=== PATIENT | female | born 1990 | race Caucasian/White ===

== ENCOUNTER 2023-03-24 07:26 | Inpatient (IN) | payer OTHER ==
[2023-03-24] MEDS: ELECTROLYTE-148 SOLN 1,000 ML IV SCH ×2 (08:45→11:55)
[2023-03-24 08:48] VITALS: BMI 28.3
[2023-03-24] MEDS: OXYTOCIN 30 UNITS in 0.9% NS 30 UNIT/500 ML INFUS.BAG IVPB SCH (08:50)
[2023-03-24 08:57] LABS: BASO % 0.3 % (0-2.0); EOS % 0.7 % (0-4.5); HEMATOCRIT 33.8 % (32.4-45.2); LYMPH % 14.5 % (8-40); MCH 35.8 pg (25.7-33.7); MCHC 35.5 g/dl (32.0-36.0); MEAN CELL VOLUME 100.9 fl (80-96); MEAN PLT VOLUME 8.5 fl (7.5-11.1); MONO % 8.9 % (3.8-10.2); NEUT % 75.6 % (42.8-82.8); PLATELET COUNT 169 10^3/uL (134-434); RBC 3.35 M/mm3 (3.60-5.2); RDW 12.9 % (11.6-15.6)
[2023-03-24 09:02] LABS: INR 0.98 (0.83-1.09); PROTHROMBIN TIME (PATIENT) 11.4 SEC (9.7-13.0)
[2023-03-24 09:05] LABS: ACTIVATED PTT 26.3 SECONDS (25.2-36.5)
[2023-03-24 09:14] LABS: POTASSIUM 3.7 mmol/L (3.5-5.1)
[2023-03-24 09:15] LABS: CALCIUM 8.1 mg/dL (8.5-10.1)
[2023-03-24 09:16] LABS: BLOOD UREA NITROGEN 9.7 mg/dL (7-18)
[2023-03-24 09:19] LABS: CREATININE 0.6 mg/dL (0.55-1.3)
[2023-03-24 10:27] LABS: HIV INTERPRETATION NEGATIVE (NEGATIVE)
[2023-03-24] MEDS ORDERED: FENTANYL/BUPIVACAINE/NS/PF - PCEA - 50 ML DISP.SYRIN EP ONE ×3 (11:01→20:06)
[2023-03-24] MEDS ORDERED: NALOXONE HCL 0.4 MG/ML VIAL IVPUSH PRN (11:18)
[2023-03-24] MEDS ORDERED: FENTANYL CITRATE/PF 50 MCG/ML VIAL ONE (11:20)
[2023-03-24] MEDS ORDERED: BUPIVACAINE HCL/PF 0.25% (2.5MG/ML) 10 ML VIAL ONE (11:20)
[2023-03-24] MEDS: FENTANYL/BUPIVACAINE/NS/PF - PCEA - 50 ML DISP.SYRIN EP SCH ×2 (11:35→17:30)
[2023-03-24] MEDS ORDERED: OXYTOCIN 20 UNITS in 0.9% NS 20 UNIT/1,000 ML INFUS.BAG IV ONE (20:59)
[2023-03-24] MEDS ORDERED: BENZOCAINE 20% 57 GM BOTTLE TP PRN (22:15)
[2023-03-24] MEDS ORDERED: METHYLERGONOVINE MALEATE 0.2 MG/1 ML AMP IM PRN (22:15)
[2023-03-24] MEDS ORDERED: BISACODYL 10 MG SUPP.RECT RC PRN (22:15)
[2023-03-24] MEDS ORDERED: oxyCODONE HCL 5 MG TABLET PO PRN (22:15)
[2023-03-24] MEDS ORDERED: WITCH HAZEL 50% (TUCKS) 40 PAD/JAR PAD TP PRN (22:15)
[2023-03-24] MEDS ORDERED: OXYTOCIN 20 UNITS in 0.9% NS 20 UNIT/1,000 ML INFUS.BAG IV SCH (22:15)
[2023-03-24] MEDS ORDERED: BENZOCAINE 28 GM HEMORRHOIDAL OINTMENT TP PRN (22:15)
[2023-03-25] MEDS: IBUPROFEN 600 MG TABLET (FP) PO PRN ×4 (00:52→21:22)
[2023-03-25] MEDS: ACETAMINOPHEN 325 MG TABLET (FP) PO PRN ×2 (03:48→16:57)
[2023-03-25 07:51] LABS: BASO % 0.3 % (0-2.0); EOS % 0.3 % (0-4.5); HEMATOCRIT 28.4 % (32.4-45.2); LYMPH % 10.6 % (8-40); MCH 35.9 pg (25.7-33.7); MCHC 35.2 g/dl (32.0-36.0); MEAN CELL VOLUME 101.8 fl (80-96); MEAN PLT VOLUME 8.3 fl (7.5-11.1); MONO % 7.4 % (3.8-10.2); NEUT % 81.4 % (42.8-82.8); PLATELET COUNT 154 10^3/uL (134-434); RBC 2.79 M/mm3 (3.60-5.2); RDW 12.7 % (11.6-15.6); WHITE BLOOD COUNT 16.2 K/mm3 (4.0-10.0)
[2023-03-25] MEDS: FERROUS SO4 325 MG TABLET (FP) PO SCH ×2 (09:53→21:23)
[2023-03-25] MEDS: PRENATAL VITAMINS W/ FOLIC ACID TABLET (FP) PO SCH (09:53)
[2023-03-25] MEDS: ELECTROLYTE-148 SOLN 1,000 ML IV SCH (10:59)
[2023-03-25] MEDS: OXYTOCIN 30 UNITS in 0.9% NS 30 UNIT/500 ML INFUS.BAG IVPB SCH (10:59)
[2023-03-25] MEDS: FENTANYL/BUPIVACAINE/NS/PF - PCEA - 50 ML DISP.SYRIN EP SCH (12:54)
[2023-03-25] MEDS ORDERED: SENNOSIDES/DOCUSATE COMBO (SENNA PLUS) TABLET (UD) PO PRN (22:00)
[2023-03-26 00:21] VITALS: TEMP 97.8
[2023-03-26] MEDS: IBUPROFEN 600 MG TABLET (FP) PO PRN ×3 (01:49→13:23)
[2023-03-26 08:37] VITALS: BP 105/80; PULSE 90; RESP 18
[2023-03-26] MEDS: PRENATAL VITAMINS W/ FOLIC ACID TABLET (FP) PO SCH (10:15)
[2023-03-26] MEDS: FERROUS SO4 325 MG TABLET (FP) PO SCH (10:16)
== END 2023-03-26 14:15 | disposition home or self-care (01) | DRG 807 ==
LOC: JLDR 07:26 → J3W 03-25 00:30
PROVIDERS: ADMIT Obstetrics & Gynecology; ATTEND Obstetrics & Gynecology
PROC: 10E0XZZ Delivery of Products of Conception, External Approach (ICD-10-PCS; principal; 2023-03-24)
PROC: 0W8NXZZ Division of Female Perineum, External Approach (ICD-10-PCS; 2023-03-24)
DX: O69.81X0 Labor and delivery complicated by cord around neck, without compression, not applicable or unspecified (principal); Z37.0 Single live birth; O48.0 Post-term pregnancy; Z3A.40 40 weeks gestation of pregnancy
CPT/HCPCS: 36415; 80048; 85025; 85610; 85730; 86780; 86850; 86900; 86901; 87389